=== PATIENT | male | born 1950 | race Caucasian/White ===

== ENCOUNTER 2021-01-12 09:22 | Outpatient (CLI) | payer MEDICARE, SELFPAY | END 2021-01-12 09:23 | disposition home or self-care (01) | LOC: CHSCOVIDVC 09:22 | PROVIDERS: PCP Family Medicine | DX: Z23 Encounter for immunization (principal) | CPT/HCPCS: 0011A; 91301 ==

== ENCOUNTER 2021-02-09 09:27 | Outpatient (CLI) | payer MEDICARE, SELFPAY | END 2021-02-09 09:28 | disposition home or self-care (01) | LOC: CHSCOVIDVC 09:27 | PROVIDERS: PCP Family Medicine | DX: Z23 Encounter for immunization (principal) | CPT/HCPCS: 0012A; 91301 ==